=== PATIENT | female | born 1970 | race Caucasian/White ===

== ENCOUNTER → 2023-09-02 18:08 | Outpatient (REF) | payer BC, SELFPAY | LOC: WDC 18:08 | PROVIDERS: ATTENDING PHYSICIAN Obstetrics & Gynecology | DX: Z12.13 Encounter for screening for malignant neoplasm of small intestine (principal) | CPT/HCPCS: 77063; 77067 ==

== ENCOUNTER → 2023-10-21 08:17 | Outpatient (REF) | payer BC, SELFPAY | LOC: WDC 08:17 | PROVIDERS: ATTENDING PHYSICIAN Obstetrics & Gynecology | DX: R92.2 Inconclusive mammogram (principal) | CPT/HCPCS: 76641 ==

== ENCOUNTER → 2024-01-26 07:27 | Day surgery (SDC) | payer BC, SELFPAY | LOC: GI 07:27 | PROVIDERS: ATTENDING PHYSICIAN Internal Medicine Gastroenterology | DX: Z12.11 Encounter for screening for malignant neoplasm of colon (principal); K64.8 Other hemorrhoids; K62.1 Rectal polyp | CPT/HCPCS: 45380; 88305 ==

== ENCOUNTER → 2024-04-19 08:35 | Outpatient (REF) | payer BC, SELFPAY | LOC: WDC 08:35 | PROVIDERS: ATTENDING PHYSICIAN Obstetrics & Gynecology; FAMILY PHYSICIAN Family Medicine | DX: R92.8 Other abnormal and inconclusive findings on diagnostic imaging of breast (principal) | CPT/HCPCS: 76642 ==

== ENCOUNTER → 2024-12-07 09:19 | Outpatient (REF) | payer OTHER, SELFPAY | LOC: WDC 09:19 | PROVIDERS: ATTENDING PHYSICIAN Student in an Organized Health Care Education/Training Program; FAMILY PHYSICIAN Family Medicine | DX: N64.4 Mastodynia (principal) | CPT/HCPCS: 76642; 77062; 77066 ==

== ENCOUNTER 2024-12-14 11:43 | Emergency (ER) | payer OTHER, SELFPAY ==
[2024-12-14] VITALS (9 sets, daily range): BP systolic 101–115; BP diastolic 63–79; PULSE 77; BMI 21.6
--- NOTE | 2024-12-14 14:46 | ED.GENMED ---
History of Present Illness
General
Chief Complaint: Dizziness
Source: patient
Exam Limitations: none
Time Seen by Provider: 12/14/24 14:10
Nursing documentation reviewed up to this point in time: agreed with
History of Present Illness
History of Present Illness:
Patient is a 54-year-old healthy female presents to the ER for evaluation. Patient reports today and 2 days ago she was walking her dog and about 10 minutes into the walk she felt dizzy and felt like her legs were going to give out. She reports' I
simply could not walk anymore.' Today she was able to rest multiple times and did finish the walk.
She typically walks at least an hour several times a week. She denies any type of vertigo sensation but reports she felt generally dizzy and a little lightheaded but did not feel like she was going to pass out . She had no associated chest pain
or shortness of breath. She denies any recent illness. She does report that this initially occurred Friday 2 days ago and she came over drink a lot of water but reports this morning when she walks she does not think she was hydrated enough.
She had no associated headache with her s/s. She reports she is under a lot of stress having to study for very important test and has been anxious recently and was wondering if this has any effect on what is happening.
She has no past medical history.
Past History
Past History
ED Past Medical History: None
ED Past Surgical History: None
Social History
Tobacco: Non-smoker
Alcohol: Occasional
Drug: None
Personal:
Living: with family
Review of Systems
Review of Systems
Allergies reviewed?: Yes
All Other Systems: ROS reviewed and negative except as documented in HPI and ROS
Phy Exam
General Physical Exam
General Presentation: no apparent distress
General age: appears stated age
General Skin: warm and dry
General Habitus: normal
General Mental: alert
General Hydration: dry mucous membranes
Cardiovascular Exam
Cardiovascular Exam: regular rate/rhythm, no murmur and normal peripheral pulses
Pulmonary Exam
Pulmonary Exam: lungs clear and no respiratory distress
Neurological Exam
Neurological Exam: alert and oriented x3
Musculoskeletal Exam
Musculoskeletal Exam: full ROM
Skin Exam
Skin Exam: normal color and warm/dry
Psychiatric Exam
Psychiatric Exam: normal mood/affect
Course
Orders/Labs/Results
Orders:
Orders
12/14/24 11:48
Electrocardiogram (*1) Urgent
Reason for Study: Chest Pain
Cardiac Monitoring- Treatment ONCE
EKG- Treatment ONCE
IV Insert/Care/Rem.- Treatment PRN
Test Result ONCE
O2 Therapy [RESP] Urgent
Titrate/Wean O2 to maintain O2 sat greater than (%): 90
Special Instructions: Maintain sats >/=90%
Pulse Ox/spot Check [RESP] Urgent
Quantity: 1
Special Instructions: ON ROOM AIR
12/14/24 14:45
Complete Blood Count/With Diff Urgent
Comprehensive Metabolic Panel Urgent
HCG, Serum Qualitative Screen Urgent
Troponin I Urgent
12/14/24 14:57
0.9% Sodium Chloride 1000 ml [Nss] 1,000 ml IV BOLUS
12/14/24 15:00
Orthostatic VS- Treatment ONCE
Abnormal Lab Results
12/14/24
14:45
MCH 31.2 H pg
(27.0-31.0)
Glucose 102 H mg/dl
(70-99)
Total Protein 8.7 H g/dl
(6.3-8.2)
Albumin 5.6 H g/dl
(3.5-5.0)
12/14/24 14:45
12/14/24 14:45
Vital Signs
Initial and Last Documented VS:
Initial Vital Signs
Temp Pulse Resp BP Pulse Ox
98.2 F 83 18 104/79 100
12/14/24 11:45 12/14/24 11:45 12/14/24 11:45 12/14/24 11:45 12/14/24 11:45
Last Documented Vital Signs
Temp Pulse Resp BP Pulse Ox
98.2 F 66 12 114/72 100
12/14/24 11:45 12/14/24 17:45 12/14/24 17:45 12/14/24 17:00 12/14/24 15:42
Vineyardist consulted with Physician
Vineyardist consulted with physician?: Yes (cheli )
MDM/Problems Addressed
Differential Diagnosis Includes:
Not limited to dehydration, electrolyte abnormality less likely ACS
MDM/Problems Addressed:
54 yr old female presents to the ER for evaluation of dizziness.
Patient was walking several days ago and today and felt dizzy like her legs were going to give out. She did sit down she was able to finish the walk however presented to the ER for evaluation of the symptoms. She had no associated chest pain or
shortness of breath. No associated headache.
she is in no acute distress no cardiac history. She has no other medical history takes no medications. She is very active and healthy. She does report she is under a lot of stress.
She is asymptomatic here and well-appearing normal exam normal neurologic exam.
She was monitored here and given fluids. Her electrolytes are normal her troponin is negative and EKG is normal. She does report that this morning she did not drink enough fluids this likely may be from being dehydrated along with a heat outside.
Will DC home with instructions to increase fluids and close outpatient follow-up with your doctor.
*Pulse Oximetry
SaO2: 100
Oxygen Mode of Delivery: Room air
Patient hypoxic: no
*EKG
Interpreted by ED Provider?: Yes
Interpretation: normal
Heart Rate: 70
Rate: normal
Rhythm: sinus
Ischemia: no ischemia
*Critical Care Note
Total Time (30-74mins, 75-104mins- exclusive of procedures): Not Applicable
ED Attending Note
-
Portions of this chart may have been created with voice recognition software.� Occasional wrong word or��sound alike� substitutions may have occurred due to the inherent limitations of voice recognition software.
Discharge Plan
Departure
Patient Disposition: Home (Routine Discharge)
Date of Disposition: 12/14/24
Time of Disposition: 18:04
Patient with high blood pressure during this ER visit?: No
Condition: Fair
Covid-19: Not Applicable
Discharge Problem:
Dizziness
Instructions: Dizziness
Referrals:
Deepa Del Rosario MD [Family Provider, Family Practice]
Stand Alone Forms: Return to Work
Activity Restrictions/Additional Instructions:
As discussed please make sure you increase fluids
follow-up with your family doctor in the next 2 days for reevaluation of your symptoms.
Return if any worsening of symptoms
Interventions
Interventions:
*Risk Screen - Suicide Last Done: 12/14/24 11:45
*General Assessment Last Done: 12/14/24 14:41
*Neglect/Abuse Screening Last Done: 12/14/24 11:45
*ED- Fall Risk Assessment Last Done: 12/14/24 14:41
*ED COVID-19 Vaccine History Last Done: 12/14/24 14:41
ED- Neurological Assessment Last Done: 12/14/24 14:41
ED- Cardiac Assessment Last Done: 12/14/24 14:41
ED Swallowing Screen Last Done: 12/14/24 15:50
Discharge Date and Time
Print Language: ESTONIAN
[2024-12-14 14:56] LABS: Hematocrit 41.2 % (37.0-47.0); Hemoglobin 14.1 g/dL (12.0-16.0); Mean Corp Hgb Conc. 34.2 g/dL (33.0-37.0); Mean Corpuscular Volume 91.2 fL (81.0-99.0); Nucleated Red Blood Cells % 0 %; Platelet Count 255 10^3/uL (130-400); Red Cell Dist. Width 12.0 % (11.5-14.5)
[2024-12-14 15:04] LABS: HCG, Serum Qualitative Screen Negative
[2024-12-14 15:23] LABS: Troponin I < 0.012 ng/ml
[2024-12-14 15:31] LABS: ALT (SGPT) 14 U/L (0-35); AST (SGOT) 18 U/L (14-36); Albumin 5.6 g/dl (3.5-5.0); Alkaline Phosphatase 44 U/L (38-126); Blood Urea Nitrogen 9 mg/dl (7-17); Calcium 10.2 mg/dl (8.4-10.2); Carbon Dioxide 26 mmol/L (22-30); Chloride 104 mmol/L (98-107); Estimated Creatinine Clearance 81 ml/min; Glucose 102 mg/dl (70-99); Potassium 3.7 mmol/L (3.5-5.1); Sodium 141 mmol/L (135-145); Total Protein 8.7 g/dl (6.3-8.2); eGFR > 60.00
[2024-12-14] MEDS: NSS 1000 IV (15:45)
--- NOTE | 2024-12-14 18:33 | EDRN ---
Reviewed discharge instructions with patient. Verbalized understanding. Ambulated with steady gait to the lobby.
== END 2024-12-14 18:25 | disposition home or self-care (01) ==
LOC: EMR 11:43
PROVIDERS: EMERGENCY PHYSICIAN Emergency Medicine; FAMILY PHYSICIAN Student in an Organized Health Care Education/Training Program
DX: R42 Dizziness and giddiness (principal)
CPT/HCPCS: 96360; 99284; 80053; 84484; 84703; 85025; 93005